=== PATIENT | female | born 1955 | race Caucasian/White ===

== ENCOUNTER 2020-10-15 10:00 | Outpatient (CLI) | payer MEDICARE, MEDICAID | END 2020-10-15 10:30 | disposition home or self-care (01) | LOC: D.MAMMO 10:00 | PROVIDERS: ATTEND Family Medicine | DX: Z12.31 Encounter for screening mammogram for malignant neoplasm of breast (principal) ==

== ENCOUNTER 2020-10-15 13:00 | Outpatient (CLI) | payer MEDICARE, MEDICAID | END 2020-10-15 23:59 | disposition home or self-care (01) | LOC: D.CT 13:00 | PROVIDERS: ATTEND Nurse Practitioner | DX: K43.2 Incisional hernia without obstruction or gangrene (principal); N64.4 Mastodynia ==